=== PATIENT | female | born 1955 | race African-American/Black ===

== ENCOUNTER 2016-11-04 17:32 | Emergency (ER) | payer MEDICARE ==
--- OUTSIDE RECORDS SUMMARY | 2016-11-04 18:15 | XMS | Clinical Summary ---
:1955 Author Organization [facility] Address [address] [place] [address] Phone Care Team Providers Name Role Phone , Primary Care Provider Unavailable Allergies Not on File Current Medications Not on file Active Problems Not on file Social History Tobacco Use Types Packs/Day Years Used Date Never Assessed Sex Assigned at Date Recorded Not on file Last Filed Vital Signs Not on file Plan of Treatment Not on file Results Not on filefrom Last 3 Months
[2016-11-04] MEDS ORDERED: Ondansetron HCl/PF 4 MG/2 ML Vial ONE ×2 (20:00→20:01)
[2016-11-04 20:54] LABS: #Basophils 0.1 thou/uL (0.0-0.2); #Eosinphils 0.1 thou/uL (0.0-0.7); #Lymphocytes 2.7 thou/uL (1.20-3.40); #Monocytes 0.6 thou/uL (0.11-0.59); #Neutrophils 6.1 thou/uL (1.40-6.50); %Basophils 1.2 % (0.0-1.0); %Eosinophils 0.8 % (0.0-10.0); %Lymphocytes 28.4 % (21.0-51.0); Mean Platelet Volume 6.3 fL (7.4-10.4); Red Blood Cell (RBC) Count 4.11 mill/uL (4.20-5.40); White Blood Cell (WBC) Count 9.6 thou/uL (4.8-10.8)
[2016-11-04 21:14] LABS: ALT (SGPT) 12 U/L (8-55); AST (SGOT) 19 U/L (5-34); Alkaline Phosphatase 108 U/L (40-150); Anion Gap 13 mmol/L (10-20); BUN (Urea Nitrogen) 19 mg/dL (9.8-20.1); Bilirubin, Total 0.4 mg/dL (0.2-1.2); Calc. Creatinine Clearance 0 mL/min (70-130); Calcium 9.2 mg/dL (7.8-10.44); Carbon Dioxide 25 mmol/L (22-29); Chloride 105 mmol/L (98-107); Estimated GFR-MDRD 53; Globulin 4.6 g/dL (2.4-3.5); Lipase 20 U/L (8-78); Protein, Total 8.1 g/dL (6.0-8.3)
--- NOTE | 2016-11-04 21:35 | RAD ---
AP ABDOMINAL RADIOGRAPH: Date: 11-04-16 History: Abdominal pain. FINDINGS: Surgical clips overlie the right upper quadrant. Multiple ring-like metallic densities overlie the m idline, likely related to prior hernia repair. There are metallic sutures overlying the right upper pelvis. Bowel gas pattern is nonspecific. Vascular calcifications and phleboliths overlie the pelvis . There is bilateral hip osteoarthritis with degenerative changes in the spine. IMPRESSION: 1. Nonspecific bowel gas pattern. 2. Post-surgical changes of the abdomen. 3. Bilateral hip osteoarthritis. POS: [facility]
== END 2016-11-04 22:00 | disposition home or self-care (01) ==
LOC: ERS 17:32
DX: R10.9 Unspecified abdominal pain (principal); G89.29 Other chronic pain; K21.9 Gastro-esophageal reflux disease without esophagitis; I25.2 Old myocardial infarction; I10 Essential (primary) hypertension; Z79.899 Other long term (current) drug therapy; Z79.891 Long term (current) use of opiate analgesic
CPT/HCPCS: 74000; 80053; 83690; 85025; 96361; 96374; 96375; J2270; J2405

== ENCOUNTER 2017-02-12 14:08 | Emergency (ER) | payer MEDICARE ==
[2017-02-12 15:07] LABS: #Eosinphils 0.3 thou/uL (0.0-0.7); #Monocytes 0.4 thou/uL (0.11-0.59); #Neutrophils 7.6 thou/uL (1.40-6.50); %Basophils 0.4 % (0.0-1.0); %Eosinophils 3.6 % (0.0-10.0); %Lymphocytes 10.6 % (21.0-51.0); %Monocytes 4.2 % (0.0-10.0); %Neutrophils 81.3 % (42.0-75.0); Hemoglobin 11.9 g/dL (12.0-16.0); Mean Corpuscular HGB CONC 32.7 g/dL (32.0-36.0); Mean Corpuscular Hemoglobin 31.1 pg (27.0-31.0); Mean Corpuscular Volume 95.1 fl (81.0-99.0); Mean Platelet Volume 6.8 fL (7.4-10.4); Platelet Count 378 thou/uL (130-400); RBC Distribution Width 14.2 % (11.5-14.5); Red Blood Cell (RBC) Count 3.84 mill/uL (4.20-5.40); White Blood Cell (WBC) Count 9.3 thou/uL (4.8-10.8)
--- NOTE | 2017-02-12 15:13 | RAD ---
PORTABLE CHEST ONE VIEW: Date: 02-12-17 Time: 3:00 p.m. History: Shortness of breath, cough, chills, fever. FINDINGS: Comparison made with exam of 10-12-16. The heart size is borderline. The aorta is tortuous. The lungs are expanded without focal areas of co nsolidation, pneumothorax, or pleural effusions. There is no evidence of carlos pulmonary edema. IMPRESSION: No radiographic evidence of acute cardiopulmonary process. POS: [facility]
[2017-02-12 15:26] LABS: ALT (SGPT) 9 U/L (8-55); AST (SGOT) 16 U/L (5-34); Albumin 3.7 g/dL (3.5-5.0); Alkaline Phosphatase 112 U/L (40-150); Anion Gap 14 mmol/L (10-20); BUN (Urea Nitrogen) 19 mg/dL (9.8-20.1); Bilirubin, Total 0.4 mg/dL (0.2-1.2); CK (CPK) 75 U/L (29-168); Calc. Creatinine Clearance 0 mL/min (70-130); Calcium 9.5 mg/dL (7.8-10.44); Carbon Dioxide 24 mmol/L (22-29); Chloride 103 mmol/L (98-107); Estimated GFR-MDRD 46; Globulin 4.4 g/dL (2.4-3.5); Glucose 129 mg/dL (70-105); Potassium 3.4 mmol/L (3.5-5.1); Protein, Total 8.1 g/dL (6.0-8.3); Sodium 138 mmol/L (136-145)
[2017-02-12 15:29] LABS: CKMB 0.6 ng/mL (0-6.6); Troponin I 0.017 ng/mL (< 0.028)
[2017-02-12] MEDS ORDERED: Acetaminophen 500 MG TAB ONE (16:17)
[2017-02-12] MEDS ORDERED: cefTRIAXone\\ROCEPHIN 1 GM, Syringe 0.4 ML in Sterile Water 9.6 ML SLOW IVP SCH (17:30)
[2017-02-12 18:04] LABS: Bilirubin Negative (Negative); Blood, Urine Moderate (Negative); Clarity CLEAR (Clear); Glucose, Urine (Dipstick) Negative (Negative); Leukocyte Small (Negative); Nitrite Negative (Negative); Protein, Urine (Dipstick) Negative (Neg-Trace); Specific Gravity, Urine 1.026 (1.002-1.036); Urobilinogen 0.2 mg/dL (0.2-1.0)
[2017-02-12 18:06] LABS: Bacteria/HPF None Seen HPF (None Seen); Hyaline Casts/LPF 0-3 HYALINE CAST LPF (0-3 Hyaline); Pathc Cast-AUWi Flag 0.81 (0-2.49); RBC/HPF 21-50 HPF (0-3); Squamous Epithelial 0-3 HPF (0-3)
== END 2017-02-12 20:03 | disposition home or self-care (01) ==
LOC: ERS 14:08
DX: I16.0 Hypertensive urgency (principal); R79.89 Other specified abnormal findings of blood chemistry; E78.5 Hyperlipidemia, unspecified; I25.2 Old myocardial infarction; D64.9 Anemia, unspecified; J45.909 Unspecified asthma, uncomplicated; I10 Essential (primary) hypertension
CPT/HCPCS: 36415; 71045; 80053; 81003; 81015; 82550; 82553; 83605; 83880; 84484; 85025; 87040; 87081; 87086; 87430; 93005; 96361; 96365; 96366; A4216; J0696; J7620

== ENCOUNTER 2018-04-06 12:38 | Emergency (ER) | payer MEDICARE ==
[~2018-04-06 12:38] MED LIST: ISOVUE-370 76%-LOCM 1 ML ONE
[2018-04-06 13:18] LABS: #Basophils 0.1 thou/uL (0.0-0.2); #Eosinphils 0.1 thou/uL (0.0-0.7); #Lymphocytes 2.5 thou/uL (1.20-3.40); #Monocytes 0.5 thou/uL (0.11-0.59); #Neutrophils 4.6 thou/uL (1.40-6.50); %Basophils 1.2 % (0.0-1.0); %Lymphocytes 32.2 % (21.0-51.0); %Monocytes 6.1 % (0.0-10.0); %Neutrophils 59.5 % (42.0-75.0); Hemoglobin 10.9 g/dL (12.0-16.0); Mean Corpuscular HGB CONC 31.7 g/dL (32.0-36.0); Mean Corpuscular Hemoglobin 30.3 pg (27.0-31.0); Mean Corpuscular Volume 95.6 fL (78.0-98.0); Mean Platelet Volume 7.2 fL (7.4-10.4); Platelet Count 359 thou/uL (130-400); RBC Distribution Width 14.7 % (11.5-14.5); Red Blood Cell (RBC) Count 3.59 mill/uL (4.20-5.40); White Blood Cell (WBC) Count 7.7 thou/uL (4.8-10.8)
[2018-04-06 13:56] LABS: ALT (SGPT) 10 U/L (8-55); AST (SGOT) 20 U/L (5-34); Albumin 3.6 g/dL (3.4-4.8); Alkaline Phosphatase 119 U/L (40-150); Anion Gap 14 mmol/L (10-20); BUN (Urea Nitrogen) 15 mg/dL (9.8-20.1); Bilirubin, Total 0.3 mg/dL (0.2-1.2); Calc. Creatinine Clearance 0 mL/min (70-130); Calcium 8.7 mg/dL (7.8-10.44); Carbon Dioxide 22 mmol/L (23-31); Chloride 108 mmol/L (98-107); Estimated GFR-MDRD 60; Globulin 3.2 g/dL (2.4-3.5); Glucose 106 mg/dL (80-115); Potassium 3.6 mmol/L (3.5-5.1); Protein, Total 6.8 g/dL (6.0-8.3); Sodium 140 mmol/L (136-145)
--- NOTE | 2018-04-06 14:07 | RAD ---
CHEST 2 VIEWS: Date: 04/06/18 HISTORY: Chest pain. COMPARISON: Radiograph dated 02/12/17. FINDINGS: Heart size mildly enlarged. No pneumothorax. No effusion. Calcified granuloma left lung base with sma ll calcified granuloma right upper lobe. No acute osseous abnormality. IMPRESSION: Mild cardiomegaly. POS: [facility]
--- NOTE | 2018-04-06 15:02 | CT ---
CT ANGIO CHEST AND ABDOMEN PERFORMED WITH IV CONTRAST ENHANCEMENT: Date: 04/06/18 HISTORY: Chest and back pain. Right arm numbness. This examination was done per the dissection protocol. FINDINGS: The lungs are clear of any infiltrative process. There are no pulmonary nodules identified. There is no significant mediastinal, hilar, or any significant axillary adenopathy noted. There is a hiatal hernia and postoperative changes of the stomach seen. Small hypodensities involving the spleen are statistically most likely benign lesions, either small h emangiomas or cysts. The liver and pancreas regions appear unremarkable. Gallbladder has been removed. Right and left adrenal glands, and right and left kidneys are normal in size. Several right renal cys ts are identified. No significant periaortic or mesenteric adenopathy is appreciated. There is eviden ce of a ventral hernia repair partially visualized on this study. The angiographic portion of this study yielded a good examination. There is good pulmonary artery opa cification, and I see no evidence for any type of pulmonary embolus. The thoracic aorta is normal in caliber, as is the abdominal aorta. There are no signs for dissection. The origins of the celiac and superior mesenteric arteries, as well as renal arteries, all appear unremarkable. Colonic diverticulosis incidentally noted. Normal appendix is partially visualized. IMPRESSION: 1. No evidence of aortic aneurysm or dissection. 2. Postoperative changes of the stomach with a hiatal hernia demonstrated. 3. Right renal cyst. 4. Colonic diverticulosis. 5. Evidence of previous ventral hernia repair. POS: [facility]
== END 2018-04-06 15:01 | disposition home or self-care (01) ==
LOC: ERS 12:38
DX: R07.89 Other chest pain (principal); M54.6 Pain in thoracic spine; I25.10 Atherosclerotic heart disease of native coronary artery without angina pectoris; I25.2 Old myocardial infarction; D50.0 Iron deficiency anemia secondary to blood loss (chronic); E78.5 Hyperlipidemia, unspecified; I10 Essential (primary) hypertension; J45.909 Unspecified asthma, uncomplicated
CPT/HCPCS: 36415; 71046; 71275; 80053; 83880; 84484; 85025; 85379; 93005; Q9966

== ENCOUNTER 2018-04-28 14:53 | Emergency (ER) | payer MEDICARE ==
[2018-04-28 15:40] LABS: #Basophils 0.1 thou/uL (0.0-0.2); #Eosinphils 0.1 thou/uL (0.0-0.7); #Lymphocytes 2.2 thou/uL (1.20-3.40); #Monocytes 0.6 thou/uL (0.11-0.59); %Basophils 0.9 % (0.0-1.0); %Lymphocytes 31.9 % (21.0-51.0); %Monocytes 8.1 % (0.0-10.0); Hemoglobin 10.3 g/dL (12.0-16.0); Mean Corpuscular HGB CONC 31.7 g/dL (32.0-36.0); Mean Corpuscular Hemoglobin 29.9 pg (27.0-31.0); Mean Corpuscular Volume 94.3 fL (78.0-98.0); Mean Platelet Volume 6.8 fL (7.4-10.4); Platelet Count 377 thou/uL (130-400); RBC Distribution Width 14.6 % (11.5-14.5); Red Blood Cell (RBC) Count 3.46 mill/uL (4.20-5.40); White Blood Cell (WBC) Count 6.9 thou/uL (4.8-10.8)
[2018-04-28 16:05] LABS: ALT (SGPT) 13 U/L (8-55); AST (SGOT) 20 U/L (5-34); Albumin 3.6 g/dL (3.4-4.8); Alkaline Phosphatase 105 U/L (40-150); Anion Gap 8 mmol/L (10-20); BUN (Urea Nitrogen) 26 mg/dL (9.8-20.1); Bilirubin, Total 0.2 mg/dL (0.2-1.2); CK (CPK) 127 U/L (29-168); Calc. Creatinine Clearance 0 mL/min (70-130); Calcium 8.7 mg/dL (7.8-10.44); Carbon Dioxide 25 mmol/L (23-31); Chloride 112 mmol/L (98-107); Estimated GFR-MDRD 38; Globulin 3.1 g/dL (2.4-3.5); Glucose 76 mg/dL (80-115); Lipase 45 U/L (8-78); Potassium 4.4 mmol/L (3.5-5.1); Protein, Total 6.7 g/dL (6.0-8.3); Sodium 141 mmol/L (136-145)
--- NOTE | 2018-04-28 16:15 | RAD ---
AP VIEW CHEST: DATE: 04/28/2018. COMPARISON: Comparison is made to previous exam from 02/12/2018. FINDINGS: AP view chest demonstrates ectasia of the aorta. Calcification of the aorta is seen. Mild cardiomeg trevin is seen. No evidence of effusions, pneumonia, or pneumothorax seen. IMPRESSION: Unremarkable AP view chest. POS: [facility]
[2018-04-28] MEDS ORDERED: Fentanyl 100 MCG/2 ML VIAL ONE (18:59)
--- NOTE | 2018-04-28 19:30 | CT ---
CT BRAIN WITHOUT CONTRAST: 04/28/18 HISTORY: Altered mental status. COMPARISON: None. FINDINGS: There is no acute hemorrhage or infract. No midline shift or mass effect. Ventricular size and extra- axial CSF spaces are normal. Calvarium is intact. Paranasal sinuses and mastoids are clear. IMPRESSION: No acute intracranial abnormality. POS: [facility]
--- NOTE | 2018-04-28 19:39 | CT ---
CT ANGIOGRAM CHEST WITH CONTRAST CT ANGIOGRAM ABDOMEN WITH CONTRAST 04/28/18 HISTORY: Altered mental status. Pain. COMPARISON: CTA 04/06/18 for the same chest and abdomen. FINDINGS: CT angiogram of the chest and abdomen performed after the intravenous administration of contrast. 3D rendering was provided. No aortic dissection. No aortic dilatation. No adenopathy. Heart size is mildly enlarged. Prior gastric surgery. Lungs are clear. No pneumothorax. No effusion. Hiatal hernia is redemonstrated. Prior cholecystectomy. Liver is normal. There are multiple splenic hypodensities which are unchanged from the comparison examination. Prior ventral hernia repair. No free intraperitoneal gas or fluid. M oderate diverticular disease sigmoid colon without active current inflammation. Appendix is visualize d and is normal. No retroperitoneal adenopathy. Renal cysts are similar. Severe facet arthrosis lower lumbar spine. No thoracic or lumbar spine compression deformity. Sternum and manubrium are intact. No acute displaced rib fracture. IMPRESSION: 1. No aortic dissection or aneurysm formation. 2. No acute inflammatory process in the chest or abdomen 3. Unchanged from 04/06/18 exam. POS: [facility]
[2018-04-28] MEDS ORDERED: Aspirin Chewable 81 MG TAB ONE (20:14)
[2018-04-28] MEDS ORDERED: Ketorolac Tromethamine 30 MG/ML VIAL ONE (20:45)
--- NOTE | 2018-05-02 15:39 | EKG ---
Test Reason : Blood Pressure : / mmHG Vent. Rate : 065 BPM Atrial Rate : 065 BPM P-R Int : 140 ms QRS Dur : 100 ms QT Int : 400 ms P-R-T Axes : 010 -18 061 degrees QTc Int : 416 ms Normal sinus rhythm Minimal voltage criteria for LVH, may be normal variant No STEMI Borderline ECG Confirmed by CHAPARRO Tee, FOUZIA ([id number]), photographic editor ALESSANDRA GRIFFITH ([id number] on 05/02/2018 3:39:38 PM Referred By: Confirmed By:FOUZIA MAYFIELD M.D.
== END 2018-04-28 21:34 | disposition home or self-care (01) ==
LOC: ERS 14:53
DX: M54.16 Radiculopathy, lumbar region (principal); I25.10 Atherosclerotic heart disease of native coronary artery without angina pectoris; I25.2 Old myocardial infarction; D50.9 Iron deficiency anemia, unspecified; E78.5 Hyperlipidemia, unspecified; I10 Essential (primary) hypertension; J45.909 Unspecified asthma, uncomplicated; Z79.899 Other long term (current) drug therapy
CPT/HCPCS: 36415; 36416; 70450; 71045; 71275; 80053; 82550; 83690; 83880; 84484; 85025; 85652; 86140; 93005; 96361; 96374; 96375; J1885; J3010; Q9966

== ENCOUNTER 2018-06-20 11:22 | Emergency (ER) | payer MEDICARE ==
[2018-06-20] MEDS ORDERED: Morphine 4 MG/ML VIAL ONE (13:04)
[2018-06-20] MEDS ORDERED: Ondansetron PF 4 MG/2 ML Vial ONE (13:04)
[2018-06-20 13:15] LABS: #Basophils 0.1 thou/uL (0.0-0.2); #Eosinphils 0.1 thou/uL (0.0-0.7); #Monocytes 0.4 thou/uL (0.11-0.59); #Neutrophils 4.2 thou/uL (1.40-6.50); %Basophils 1.2 % (0.0-1.0); %Eosinophils 1.4 % (0.0-10.0); %Lymphocytes 28.9 % (21.0-51.0); %Monocytes 6.2 % (0.0-10.0); %Neutrophils 62.2 % (42.0-75.0); Hemoglobin 10.7 g/dL (12.0-16.0); Mean Corpuscular HGB CONC 31.9 g/dL (32.0-36.0); Mean Corpuscular Hemoglobin 29.8 pg (27.0-31.0); Mean Corpuscular Volume 93.2 fL (78.0-98.0); Mean Platelet Volume 7.8 fL (7.4-10.4); Platelet Count 328 thou/uL (130-400); RBC Distribution Width 15.3 % (11.5-14.5); White Blood Cell (WBC) Count 6.8 thou/uL (4.8-10.8)
[2018-06-20 13:33] LABS: Bilirubin Negative (Negative); Blood, Urine Negative (Negative); Clarity CLOUDY (Clear); Glucose, Urine (Dipstick) Negative (Negative); Leukocyte Small (Negative); Nitrite Negative (Negative); Protein, Urine (Dipstick) Negative (Neg-Trace); Specific Gravity, Urine 1.017 (1.002-1.036); pH, Urine 5.5 (5.0-9.0)
[2018-06-20 13:35] LABS: ALT (SGPT) 13 U/L (8-55); AST (SGOT) 22 U/L (5-34); Albumin 3.8 g/dL (3.4-4.8); Alkaline Phosphatase 107 U/L (40-150); Anion Gap 13 mmol/L (10-20); BUN (Urea Nitrogen) 25 mg/dL (9.8-20.1); Bilirubin, Total 0.3 mg/dL (0.2-1.2); CRP (Inflammatory) Less than 0.50 mg/dL (= or < 0.5); Calc. Creatinine Clearance 0 mL/min (70-130); Carbon Dioxide 23 mmol/L (23-31); Chloride 108 mmol/L (98-107); Estimated GFR-MDRD 38; Globulin 3.8 g/dL (2.4-3.5); Glucose 99 mg/dL (80-115); Potassium 4.9 mmol/L (3.5-5.1); Protein, Total 7.6 g/dL (6.0-8.3); Sodium 139 mmol/L (136-145)
[2018-06-20 13:35] LABS: Bacteria/HPF None Seen HPF (None Seen); Hyaline Casts/LPF 7-10 HYALINE CAST LPF (0-3 Hyaline); Pathc Cast-AUWi Flag 0.95 (0-2.49)
[2018-06-20 13:40] LABS: RBC/HPF None Seen HPF (0-3)
--- NOTE | 2018-06-20 16:35 | MRI ---
MRI OF THE LUMBAR SPINE WITHOUT CONTRAST 06/20/18 HISTORY: Back pain since April. Difficulty holding urine. COMPARISON: None. TECHNIQUE: MRI of the lumbar spine is performed without intravenous gadolinium administration. Multisequential, multiplanar imaging is performed. FINDINGS: Appropriate T1 marrow signal intensity lumbar vertebrae. Lumbar spine vertebral body height is mainta ined. There is no fracture. There is appropriate signal intensity in the visualized distal thoracic a nd lumbar vertebrae. No significant STIR hyperintensity to suggest vertebral body edema or ligamentou s injury. 5.2 mm anterolisthesis of L4 upon L5. Appropriate signal intensity of the visualized solid organs. Symmetric signal intensity of the parasp inal muscles. The conus medullaris terminates at the inferior aspect of L1. T2 hyperintensities in the right renal cortex compatible with cortical cysts. T12-L1: No significant central canal stenosis or neural foraminal narrowing. L1-L2: Desiccation with mild loss of disc space height. There is a left subarticular disc bulge witho ut significant stenosis of the thecal sac. The right neural foramen is patent. There is moderate to s evere left foraminal narrowing due to disc material. L2-L3: Desiccation with mild loss of disc space height. There is a left subarticular disc protrusion. Disc material does abut but does not obscure the traversing left L3 nerve root. Overall, mild centra l canal stenosis. Mild right and left neural foraminal narrowing. L3-L4: The disc space height is preserved. There is minimal generalized disc bulge, ligamentum flavu m thickening and facet hypertrophy that result in minimal central canal stenosis. Neural foramina are patent bilaterally. L4-L5: Adequate disc hydration. Generalized disc bulge, ligamentum flavum thickening and facet hypert rophy result in mild central canal stenosis. There is a small amount of fluid in the right facet join t. Mild right and mild to moderate left neural foraminal narrowing. L5-S1: No significant central canal stenosis or neural foraminal narrowing. There is mild ligamentum flavum thickening and moderate facet hypertrophy with fluid in both facet joints. Mild bilateral fora jennifer narrowing. IMPRESSION: 1. Degenerative change of posterior elements of at L4-L5 and L5-S1. 2. Grade I anterolisthesis of L4 upon L5. 3. Degenerative disc disease at L1-L2 and L2-L3 as described above. There is moderate to severe left foraminal narrowing at L1-L2. POS: [facility]
== END 2018-06-20 16:57 | disposition home or self-care (01) ==
LOC: ERS 11:22
DX: M51.36 Other intervertebral disc degeneration, lumbar region (principal); M51.17 Intervertebral disc disorders with radiculopathy, lumbosacral region; I25.10 Atherosclerotic heart disease of native coronary artery without angina pectoris; I25.2 Old myocardial infarction; D50.9 Iron deficiency anemia, unspecified; E78.5 Hyperlipidemia, unspecified; I10 Essential (primary) hypertension; J45.909 Unspecified asthma, uncomplicated
CPT/HCPCS: 72148; 80053; 81003; 81015; 85025; 85652; 86140; 96374; 96375; J2270; J2405